=== PATIENT | female | born 1995 | race Caucasian/White ===

== ENCOUNTER → 2021-06-20 | Outpatient (CLI) | payer MEDICAID ==
[2021-06-20 20:27] LABS: HCT 40.2 % (37.2-46.3); HGB 12.5 g/dL (12.0-15.0); MCH 28.3 pg (27.0-32.0); MCHC 31.1 g/dL (32.0-37.0); MCV 91.2 fL (80.0-97.0); Platelet Count 234 X 10*3/uL (140-440); RBC 4.41 X 10*6/uL (4.10-5.20); RDW 12.9 % (11.5-14.5); WBC 6.86 X 10*3/uL (4.50-10.00)
[2021-06-20 21:21] LABS: % Iron Saturation 37.78 (12.00-45.00); Ferritin 35.3 ng/mL (10.0-291.0); T4, Free (Free Thyroxine) 1.17 ng/dL (0.800-1.800)
== END | disposition home or self-care (01) ==
LOC: LABWHC1 11:30
PROVIDERS: ATTEND Obstetrics & Gynecology
DX: Z13.29 Encounter for screening for other suspected endocrine disorder (principal); R53.83 Other fatigue
CPT/HCPCS: 36415; 82728; 83540; 83550; 84439; 84443; 84479; 85027

== ENCOUNTER → 2021-06-23 | Outpatient (CLI) | payer MEDICAID ==
[2021-06-23 18:58] LABS: HCT 41.2 % (34.0-46.0); HGB 13.3 gm/dL (11.4-16.0); MCH 28.5 pg (25.0-35.0); MCHC 32.3 g/dL (31.0-37.0); MCV 88.4 fL (80.0-100.0); Mean Platelet Volume 8.8; Platelet Count 231 k/uL (150-450); RBC 4.66 m/uL (3.80-5.40); RDW 12.5 % (11.5-15.5); WBC 3.4 k/uL (3.8-10.6)
[2021-06-24 01:06] LABS: % Iron Saturation 31.75 (12.00-45.00); African American GFR (CKD) 105.5 (60.0-200.0); Albumin 4.9 g/dL (3.8-4.9); Albumin/Globulin Ratio 1.78 (1.60-3.17); Anion Gap 16.8 mmol/L (4.00-12.00); BUN/Creat Ratio 12.54 Ratio (12.00-20.00); Calcium 10.3 mg/dL (8.7-10.3); Carbon Dioxide 19.2 mmol/L (21.6-31.8); Globulin 2.7 g/dL (1.6-3.3); Non-African American GFR(CKD) 91.1 (60.0-200.0); Potassium 4.4 mmol/L (3.5-5.5); Total Bilirubin 1.6 mg/dL (0.30-1.20); Total Protein 7.6 g/dL (6.2-8.2)
[2021-06-24 01:41] LABS: Ferritin 50.2 ng/mL (10.0-291.0)
== END | disposition home or self-care (01) ==
LOC: LABMAIN 18:23
PROVIDERS: ATTEND Emergency Medicine
DX: E83.119 Hemochromatosis, unspecified (principal)
CPT/HCPCS: 36415; 80053; 82728; 83540; 83550; 84466; 85027

== ENCOUNTER → 2021-06-30 | Outpatient (CLI) | payer MEDICAID ==
[2021-06-30 18:55] LABS: HCT 35.8 % (37.2-46.3); HGB 11.4 g/dL (12.0-15.0); MCH 28.4 pg (27.0-32.0); MCHC 31.8 g/dL (32.0-37.0); MCV 89.1 fL (80.0-97.0); Mean Platelet Volume 11.8 fL (9.5-12.2); Platelet Count 220 X 10*3/uL (140-440); RBC 4.02 X 10*6/uL (4.10-5.20); RDW 12.6 % (11.5-14.5)
[2021-06-30 19:30] LABS: % Iron Saturation 25.75 (12.00-45.00); African American GFR (CKD) 118.1 (60.0-200.0); Albumin 4.3 g/dL (3.8-4.9); Albumin/Globulin Ratio 1.95 (1.60-3.17); Anion Gap 11.4 mmol/L (4.00-12.00); BUN/Creat Ratio 14.14 Ratio (12.00-20.00); Blood Urea Nitrogen 11.3 mg/dL (9.0-27.0); Carbon Dioxide 21.3 mmol/L (21.6-31.8); Globulin 2.2 g/dL (1.6-3.3); Non-African American GFR(CKD) 101.9 (60.0-200.0); Potassium 3.7 mmol/L (3.5-5.5); Total Bilirubin 0.9 mg/dL (0.30-1.20); Total Protein 6.5 g/dL (6.2-8.2)
[2021-06-30 20:28] LABS: Ferritin 34.5 ng/mL (10.0-291.0)
== END | disposition home or self-care (01) ==
LOC: LABWHC1 10:42
PROVIDERS: ATTEND Emergency Medicine
DX: E83.119 Hemochromatosis, unspecified (principal)
CPT/HCPCS: 36415; 80053; 82728; 83540; 83550; 84466; 85027

== ENCOUNTER → 2021-08-22 | Outpatient (CLI) | payer MEDICAID, OTHER | END | disposition home or self-care (01) | LOC: LABWHC1 14:59 | PROVIDERS: ATTEND Emergency Medicine | DX: Z20.822 Contact with and (suspected) exposure to COVID-19 (principal) | CPT/HCPCS: 87635 ==

== ENCOUNTER → 2022-05-19 | Outpatient (CLI) | payer MEDICAID ==
--- NOTE | 2022-05-20 07:22 | US ---
EXAMINATION TYPE: US transvaginal DATE OF EXAM: 05/19/2022 COMPARISON: NONE CLINICAL HISTORY: N92.6 IRREGULAR MENSTRUATION, UNSPECIFIED. Irregular menses TECHNIQUE: Transvaginal (TV). Date of LMP: 03/08/2022, G0 EXAM MEASUREMENTS: Uterus: 6.0 x 4.1 x 3.2 cm Endometrial Stripe: 0.4 cm Right Ovary: 3.5 x 2.4 x 2.3 cm Left Ovary: 3.6 x 1.9 x 2.1 cm 1. Uterus: Retroverted wnl 2. Endometrium: wnl 3. Right Ovary: follicles seen multiple follicles are seen along the periphery. 4. Left Ovary: follicles seen 5. Bilateral Adnexa: wnl 6. Posterior cul-de-sac: no free fluid IMPRESSION: 1. Endometrium within normal limits for thickness. 2. No evidence of acute pelvic process. 3. Multiple peripherally located follicles in the right ovary could represent polycystic ovarian mor phology.
== END | disposition home or self-care (01) ==
LOC: RADUSWWP 15:43
PROVIDERS: ATTEND Family Medicine
DX: N92.6 Irregular menstruation, unspecified (principal)
CPT/HCPCS: 76830

== ENCOUNTER → 2022-05-25 | Outpatient (CLI) | payer MEDICAID ==
--- NOTE | 2022-05-26 08:18 | US ---
EXAMINATION TYPE: US thyroid st tissue head/neck DATE OF EXAM: 05/25/2022 COMPARISON: NONE CLINICAL HISTORY: R94.6 ABN THYROID LABS. abnormal labs GLAND SIZE: Right Lobe: 4.6 x 1.5 x 1.3 cm Overall Parenchyma: homogenous Left Lobe: 4.9 x 1.6 x 1.3 cm Overall Parenchyma: homogeneous Isthmus Thickness: 0.3 cm NODULES RIGHT: # of nodules measured on right: 1 1. 0.4 X 0.4 x 0.3 cm, mid lateral, cystic or almost completely cystic, hypoechoic nodule, which is wider than tall, with smooth margins, with echogenic foci. LEFT: # of nodules measured on left: 0 ISTHMUS: # of nodules measured in the isthmus: 0 Bilateral neck scanned, no evidence of lymphadenopathy. IMPRESSION: 1. No suspicious nodules. 2017 ACR TI-RADS LEVEL: TR-RADS 3 - Mildly Suspicious: Follow if > 1.5 cm, FNA if > 2.5 cm *Highest TI-RADS level nodule reported
== END | disposition home or self-care (01) ==
LOC: RADUSWWP 16:59
PROVIDERS: ATTEND Family Medicine
DX: R94.6 Abnormal results of thyroid function studies (principal)
CPT/HCPCS: 76536

== ENCOUNTER → 2022-09-15 | Outpatient (CLI) | payer MEDICAID ==
[2022-09-15 18:51] LABS: HCT 39.5 % (37.2-46.3); HGB 12.3 g/dL (12.0-15.0); MCH 27.6 pg (27.0-32.0); MCHC 31.1 g/dL (32.0-37.0); MCV 88.8 fL (80.0-97.0); Mean Platelet Volume 11.5 fL (9.5-12.2); NRBC Per 100 WBC 0 /100 WBCS (0.0-0.0); Platelet Count 274 X 10*3/uL (140-440); RBC 4.45 X 10*6/uL (4.10-5.20); RDW 13.1 % (11.5-14.5); WBC 7.91 X 10*3/uL (4.50-10.00)
[2022-09-15 19:47] LABS: African American GFR (CKD) 104.8 (60.0-200.0); Albumin 4.9 g/dL (3.8-4.9); Albumin/Globulin Ratio 2.07 (1.60-3.17); Anion Gap 14.3 mmol/L (10.00-18.00); BUN/Creat Ratio 17.67 Ratio (12.00-20.00); Blood Urea Nitrogen 15.5 mg/dL (9.0-27.0); Calcium 10.2 mg/dL (8.7-10.3); Carbon Dioxide 21.3 mmol/L (20.0-27.5); Ferritin 46.5 ng/mL (10.0-291.0); Globulin 2.4 g/dL (1.6-3.3); Non-African American GFR(CKD) 90.4 (60.0-200.0); Potassium 4.2 mmol/L (3.5-5.5); T4, Free (Free Thyroxine) 1.17 ng/dL (0.800-1.800); Total Bilirubin 1.4 mg/dL (0.30-1.20); Total Protein 7.3 g/dL (6.2-8.2)
== END | disposition home or self-care (01) ==
LOC: LABWHC1 11:22
PROVIDERS: ATTEND Physician Assistant Medical
DX: E28.2 Polycystic ovarian syndrome (principal); D58.2 Other hemoglobinopathies; R53.83 Other fatigue
CPT/HCPCS: 36415; 80053; 82728; 83540; 84439; 84443; 84481; 85027

== ENCOUNTER → 2023-01-09 | Outpatient (CLI) | payer MEDICAID ==
[2023-01-09 20:21] LABS: Estradiol 56.2 pg/mL; Follicle Stimulating Hormone 4.5 mIU/mL; Luteinizing Hormone 6.9 mIU/mL; Prolactin 10.7 ng/mL (2.800-29.200)
[2023-01-10 19:40] LABS: Estrogens Total 201 pg/mL
== END | disposition home or self-care (01) ==
LOC: LABWHC1 16:09
PROVIDERS: ATTEND Family Medicine
DX: N91.2 Amenorrhea, unspecified (principal)
CPT/HCPCS: 36415; 82533; 82626; 82670; 82672; 83001; 83002; 84140; 84144; 84146

== ENCOUNTER → 2023-01-31 | Outpatient (CLI) | payer MEDICAID | END | disposition home or self-care (01) | LOC: LABWHC1 14:29 | PROVIDERS: ATTEND Family Medicine | DX: N94.3 Premenstrual tension syndrome (principal); E28.2 Polycystic ovarian syndrome; R68.82 Decreased libido | CPT/HCPCS: 36415; 86628 ==

== ENCOUNTER → 2023-06-08 | Outpatient (CLI) | payer MEDICAID ==
[2023-06-09 02:24] LABS: Estradiol 76.8 pg/mL; T4, Free (Free Thyroxine) 0.43 ng/dL (0.80-1.80); Testosterone 58.7 ng/dL (9.01-813.86)
== END | disposition home or self-care (01) ==
LOC: LABWHC1 14:46
PROVIDERS: ATTEND Family Medicine
DX: E07.9 Disorder of thyroid, unspecified (principal); E34.9 Endocrine disorder, unspecified
CPT/HCPCS: 36415; 82670; 82672; 84144; 84403; 84439; 84443; 84481

== ENCOUNTER → 2023-07-16 | Outpatient (CLI) | payer MEDICAID ==
--- NOTE | 2023-07-16 11:43 | US ---
EXAMINATION TYPE: US thyroid st tissue head/neck DATE OF EXAM: 07/16/2023 COMPARISON: NONE CLINICAL INDICATION: Female, 28 years old with history of E04.1 NODULE; follow up thyroid nodule GLAND SIZE: Right Lobe: 4.6 x 1.3 x 1.5 cm Overall Parenchyma: homogeneous Left Lobe: 4.5 x 1.2 x 1.4 cm Overall Parenchyma: homogeneous Isthmus Thickness: 0.3 cm NODULES RIGHT: # of nodules measured on right: 1 1. 0.4 X 0.3 x 0.3 cm, mid lateral, Prior size: 0.4 x 0.3 x 0.4 cm TIRADS Score: 0 TIRADS Category 1: Benign Composition: Cystic or almost completely cystic (0 points). Recommendation: No FNA LEFT: # of nodules measured on left: 0 ISTHMUS: # of nodules measured in the isthmus: 0 Bilateral neck scanned, no evidence of lymphadenopathy. IMPRESSION: No suspicious thyroid nodules.
== END | disposition home or self-care (01) ==
LOC: RADUSWWP 10:51
PROVIDERS: ATTEND Family Medicine
DX: E04.1 Nontoxic single thyroid nodule (principal)
CPT/HCPCS: 76536

== ENCOUNTER → 2023-07-19 | Outpatient (CLI) | payer MEDICAID | END | disposition home or self-care (01) | LOC: LABWHC1 09:18 | PROVIDERS: ATTEND Family Medicine | DX: Z79.890 Hormone replacement therapy (principal) | CPT/HCPCS: 36415; 82533; 82626; 84144 ==

== ENCOUNTER → 2023-11-13 | Outpatient (CLI) | payer MEDICAID ==
[2023-11-13 16:20] LABS: Estradiol 65.4 pg/mL; T4, Free (Free Thyroxine) 1.42 ng/dL (0.80-1.80)
== END | disposition home or self-care (01) ==
LOC: LABWHC1 08:16
PROVIDERS: ATTEND Family Medicine
DX: E07.9 Disorder of thyroid, unspecified (principal); Z79.890 Hormone replacement therapy
CPT/HCPCS: 36415; 82533; 82626; 82670; 84144; 84402; 84403; 84439; 84443; 84481

== ENCOUNTER → 2023-12-04 | Outpatient (CLI) | payer MEDICAID ==
[2023-12-04 15:59] LABS: HCT 38.4 % (37.2-50.0); HGB 12.2 g/dL (12.0-17.0); MCH 27.5 pg (27.0-32.0); MCHC 31.8 g/dL (32.0-37.0); MCV 86.5 FL (80.0-97.0); Mean Platelet Volume 11.6 FL (9.5-12.2); NRBC Per 100 WBC 0 X 10*3/uL (0.00-0.01); Platelet Count 262 X 10*3/uL (140-440); RBC 4.44 X 10*6/uL (4.10-5.60); RDW 12.9 % (11.5-14.5); WBC 8.02 X 10*3/uL (4.50-10.00)
[2023-12-04 16:27] LABS: % Iron Saturation 22.05 (12.00-50.00); Chol/HDL Ratio 3.89 Ratio; Ferritin 36.9 ng/mL (10.0-322.0); Iron 99 UG/DL (50-175); LDL Cholesterol,Calculated 129.3 mg/dL (0.0-131.0); Total Iron Binding Capacity 449 UG/DL (228-460); VLDL Calculation 14.78 mg/dL (5.00-40.00)
== END | disposition home or self-care (01) ==
LOC: LABWHC1 11:35
PROVIDERS: ATTEND Obstetrics & Gynecology
DX: E28.2 Polycystic ovarian syndrome (principal); R53.83 Other fatigue
CPT/HCPCS: 36415; 80061; 82728; 83036; 83540; 83550; 85027

== ENCOUNTER → 2024-12-30 | Outpatient (CLI) | payer OTHER | END | disposition home or self-care (01) | LOC: LABWHC1 15:27 | PROVIDERS: ATTEND Obstetrics & Gynecology | DX: E28.2 Polycystic ovarian syndrome (principal); Z01.419 Encounter for gynecological examination (general) (routine) without abnormal findings | CPT/HCPCS: 36415; 82397; 83036; 84144 ==